=== PATIENT | female | born 1990 | race Caucasian/White ===

== ENCOUNTER 2017-08-31 20:17 | Emergency (ER) | payer OTHER ==
[2017-08-31 20:29] VITALS: BP 114/72
--- NOTE | 2017-08-31 20:51 | UC ---
Throat Pain/Nasal Abhinav HPI - HPI Summary HPI Summary: 27 yo female with sore throat, fever, chills x 1 day no n/v - History of Current Complaint Chief Complaint: UCGeneralIllness Stated Complaint: SORE THROAT, CHILLS Time Seen by Provider: 08/31/17 20:25 Hx Obtained From: Patient Hx Last Menstrual Period: 08/19/17 Onset/Duration: Gradual Onset, Lasting Hours Severity: Moderate Pain Intensity: 7 Pain Scale Used: 0-10 Numeric Cough: None - Allergies/Home Medications Allergies/Adverse Reactions: Allergies Allergy/AdvReac Type Severity Reaction Status Date / Time No Known Allergies Allergy Verified 08/31/17 20:30 PMH/Surg Hx/FS Hx/Imm Hx Previously Healthy: Yes - Surgical History Surgical History: None - Family History Known Family History: Positive: Hypertension, Diabetes - Social History Alcohol Use: None Substance Use Type: None Smoking Status (MU): Never Smoked Tobacco Review of Systems Constitutional: Fever, Chills Skin: Negative Eyes: Negative ENT: Sore Throat, Ear Ache Respiratory: Negative Cardiovascular: Negative Gastrointestinal: Negative Genitourinary: Negative Motor: Negative Neurovascular: Negative Musculoskeletal: Negative Neurological: Negative Psychological: Negative Is Patient Immunocompromised?: No All Other Systems Reviewed And Are Negative: Yes Physical Exam Triage Information Reviewed: Yes Appearance: Well-Appearing, No Pain Distress, Well-Nourished Vital Signs: Initial Vital Signs Temp 99.3 F 08/31/17 20:25 Pulse 95 08/31/17 20:25 Resp 16 08/31/17 20:25 BP 114/72 08/31/17 20:25 Pulse Ox 100 08/31/17 20:25 Eyes: Positive: Conjunctiva Clear ENT: Positive: Hearing grossly normal, Pharyngeal erythema, Tonsillar swelling, Tonsillar exudate. Negative: Nasal congestion, Nasal drainage, Trismus, Muffled voice, Hoarse voice, Sinus tenderness Neck: Positive: Supple, Nontender Respiratory: Positive: Lungs clear, Normal breath sounds, No respiratory distress Cardiovascular: Positive: RRR, No Murmur Musculoskeletal: Positive: ROM Limited @ - left elbow, Edema @ - left elbow, Other: - distal n/v intact Neurological: Positive: Alert Psychological Exam: Normal Skin Exam: Normal Diagnostics - Laboratory Diagnostic Studies Completed/Ordered: strep (-) Throat Pain/Nasal Course/Dx - Differential Dx/Diagnosis Provider Diagnoses: acute exudative tonsillitis Discharge - Sign-Out/Discharge Documenting (check all that apply): Discharge/Admit/Transfer - Discharge Plan Condition: Stable Disposition: HOME Prescriptions: Cephalexin CAP* [Keflex CAP*] 500 mg PO BID #18 cap Patient Education Materials: Tonsillitis (ED) Forms: *Work Release Referrals: KATHY Gaines [Primary Care Provider] - If Needed Additional Instructions: recheck in 4 days if not better - Billing Disposition and Condition Condition: STABLE Disposition: HOME
[2017-08-31] MEDS ORDERED: Cephalexin CAP* 500 MG PO ONE ×2 (20:53)
== END 2017-08-31 21:02 | disposition home or self-care (01) ==
LOC: UCCORT 20:17
DX: J03.90 Acute tonsillitis, unspecified (principal)
CPT/HCPCS: 87651; 99212; A9270-GY; G0463

== ENCOUNTER 2018-07-01 15:10 | Emergency (ER) | payer SELFPAY ==
[2018-07-01 15:42] VITALS: BP 117/77
--- NOTE | 2018-07-01 16:10 | UC ---
Ear Complaint HPI - HPI Summary HPI Summary: 28-year-old woman comes in with chief complaint of decreased hearing right ear an injury to her head and shoulder right shoulder. A couple of hours ago patient was moving items at her home and she had a 40 pound log up on a shelf came down and struck her in the right side of the head neck and shoulder. Immediately afterwards she's had decreased hearing in the right ear. The worst area of pain is in the right shoulder. No loss of consciousness or nausea and no vision changes. No weakness or numbness. The right shoulder hurts more when she moves it but she is able to move it with full range of motion and strength. The neck is not really giving her any pain right now and neither is the head. No drainage from the ear. - History of Current Complaint Chief Complaint: UCHeadInjury Stated Complaint: HEAD INJURY RIGHT EAR Time Seen by Provider: 07/01/18 16:02 Hx Last Menstrual Period: 'last week' Pain Intensity: 6 - Allergies/Home Medications Allergies/Adverse Reactions: Allergies Allergy/AdvReac Type Severity Reaction Status Date / Time No Known Allergies Allergy Verified 07/01/18 15:36 Home Medications: Home Medications Autoimmune Med 1 tab BID 07/01/18 [History Confirmed 07/01/18] PMH/Surg Hx/FS Hx/Imm Hx Previously Healthy: Yes - Surgical History Surgical History: None - Family History Known Family History: Positive: Hypertension, Diabetes - Social History Alcohol Use: None Substance Use Type: None Smoking Status (MU): Never Smoked Tobacco Review of Systems All Other Systems Reviewed And Are Negative: Yes Constitutional: Positive: Negative Skin: Positive: Negative Eyes: Positive: Negative ENT: Positive: Other - SEE HPI Respiratory: Positive: Negative Cardiovascular: Positive: Negative Gastrointestinal: Positive: Negative Motor: Positive: Negative Neurovascular: Positive: Negative Musculoskeletal: Positive: Other: - SEE HPI Neurological: Positive: Negative. Negative: Headache, Weakness, Numbness Psychological: Positive: Negative Is Patient Immunocompromised?: No Physical Exam Triage Information Reviewed: Yes Appearance: Well-Appearing, No Pain Distress, Well-Nourished Vital Signs: Initial Vital Signs Temp 97.9 F 07/01/18 15:37 Pulse 87 07/01/18 15:37 Resp 16 07/01/18 15:37 BP 117/77 07/01/18 15:37 Pulse Ox 100 07/01/18 15:37 Vital Signs Reviewed: Yes Eye Exam: Normal Eyes: Positive: Conjunctiva Clear ENT: Positive: Other - NL LEFT TM. RT TM IS RUPTURED IN THE POSTERIOR ASPECT. NO FLUID IN THE CANAL. Negative: Nasal congestion Ear Complaint Course/Dx - Course Course Of Treatment: Patient denies any headache weakness or numbness. No complaint of any neck pain. Patient does have shoulder pain but she has full range of motion and is not worried about any broken bones. Plan is for her to follow-up with ENT. Reevaluate sooner if worse or any questions or concerns. - Differential Dx/Diagnosis Provider Diagnosis: Eardrum rupture, right, Contusion of right shoulder, Head injury Discharge - Sign-Out/Discharge Documenting (check all that apply): Patient Departure All imaging exams completed and their final reports reviewed: No Studies - Discharge Plan Condition: Stable Disposition: HOME Patient Education Materials: Ruptured Eardrum (ED), Head Injury (ED), Shoulder Pain (ED) Referrals: KATHY Gaines [Primary Care Provider] - Beto Alcala MD [Medical Doctor] - Harsha Downs MD [Medical Doctor] - Additional Instructions: FOLLOW UP WITH ENT FOR YOUR RUPTURED RIGHT EAR DRUM. GET RECHECKED SOONER FOR ANY WORSENING OF YOUR CONDITION OR QUESTIONS OR CONCERNS. - Billing Disposition and Condition Condition: STABLE Disposition: Home
== END 2018-07-01 16:22 | disposition home or self-care (01) ==
LOC: UCCORT 15:10
DX: S09.21XA Traumatic rupture of right ear drum, initial encounter (principal); S40.011A Contusion of right shoulder, initial encounter; W20.8XXA Other cause of strike by thrown, projected or falling object, initial encounter; Y92.9 Unspecified place or not applicable
CPT/HCPCS: 99211; G0463

== ENCOUNTER 2018-11-03 19:17 | Emergency (ER) | payer BC, OTHER ==
[2018-11-03 19:44] VITALS: BP 107/81
--- NOTE | 2018-11-03 20:16 | UC ---
Back Pain HPI - HPI Summary HPI Summary: 28-year-old female comes in with a chief complaint of low back pain. Pain started yesterday when she is lifting turning at work. Pains in the low back. It radiates minimally into the right upper buttock but not down the legs. Pain is worse with any twisting turning bending. No weakness or numbness no difficulty controlling urine or bowels. - History of Current Complaint Chief Complaint: UCBackPain Stated Complaint: BACK INJURY Time Seen by Provider: 11/03/18 20:05 Hx Last Menstrual Period: 10/13/18 Pain Intensity: 10 - Allergies/Home Medications Allergies/Adverse Reactions: Allergies Allergy/AdvReac Type Severity Reaction Status Date / Time No Known Allergies Allergy Verified 11/03/18 19:40 PMH/Surg Hx/FS Hx/Imm Hx Previously Healthy: Yes - Surgical History Surgical History: None - Family History Known Family History: Positive: Hypertension, Diabetes - Social History Alcohol Use: None Substance Use Type: None Smoking Status (MU): Never Smoked Tobacco Review of Systems All Other Systems Reviewed And Are Negative: Yes Constitutional: Positive: Negative Skin: Positive: Negative Eyes: Positive: Negative ENT: Positive: Negative Respiratory: Positive: Negative Cardiovascular: Positive: Negative Gastrointestinal: Positive: Negative Motor: Positive: Negative Neurovascular: Positive: Negative Musculoskeletal: Positive: Other: - SEE HPI Neurological: Positive: Negative Psychological: Positive: Negative Is Patient Immunocompromised?: No Physical Exam Triage Information Reviewed: Yes Appearance: Well-Appearing, Well-Nourished, Pain Distress - MILD WITH ROM Vital Signs: Initial Vital Signs Temp 99 F 11/03/18 19:34 Pulse 97 11/03/18 19:34 Resp 16 11/03/18 19:34 BP 107/81 11/03/18 19:34 Pulse Ox 99 11/03/18 19:34 Vital Signs Reviewed: Yes Eye Exam: Normal Eyes: Positive: Conjunctiva Clear Neck: Positive: Supple Respiratory: Positive: No respiratory distress Musculoskeletal: Positive: Other: - Tender to palpation midline lower lumbar spine and slightly to the right of the lower lumbar spine. Legs a full range of motion full-strength no sensation deficits. Neurological: Positive: Alert Psychological Exam: Normal Psychological: Positive: Age Appropriate Behavior Skin Exam: Normal Back Pain Course/Dx - Differential Dx/Diagnosis Provider Diagnosis: Low back pain Discharge - Sign-Out/Discharge Documenting (check all that apply): Patient Departure All imaging exams completed and their final reports reviewed: No Studies - Discharge Plan Condition: Stable Disposition: HOME Prescriptions: Cyclobenzaprine TAB* [Flexeril 10 MG TAB*] 10 mg PO TID PRN #15 tab MDD 3 PRN Reason: Pain Patient Education Materials: Acute Low Back Pain (ED), Lower Back Exercises (ED ) Forms: *Work Release Referrals: Brad Muñiz MD [Medical Doctor] - Additional Instructions: FOLLOW UP WITH OCCUPATIONAL MEDICINE, DR MUÑIZ, IF NOT COMPLETELY IMPROVED. GET REEVALUATED SOONER IF WORSE; WEAKNESS, NUMBNESS, DIFFICULTY CONTROLLING BOWEL OR BLADDER, PAIN OR ANY QUESTIONS OR CONCERNS. - Billing Disposition and Condition Condition: STABLE Disposition: Home
== END 2018-11-03 20:25 | disposition home or self-care (01) ==
LOC: UCCORT 19:17
DX: M54.5 Low back pain (principal)
CPT/HCPCS: 99212; G0463

== ENCOUNTER 2019-06-05 12:11 | Emergency (ER) | payer OTHER ==
[2019-06-05 13:13] VITALS: BP 117/72
--- NOTE | 2019-06-19 12:50 | UC ---
Ear Complaint HPI - HPI Summary HPI Summary: 29 year old female with no PMH presents with clogged right ear, moderate ear pain x "few days". yesterday had low grade fever, concerned for ear infection. Taking Motrin for pain. no other symptoms. - History of Current Complaint Chief Complaint: UCEar Stated Complaint: RIGHT EAR COUGH SORE THROAT Time Seen by Provider: 06/05/19 14:11 Hx Obtained From: Patient Hx Last Menstrual Period: 05/11/19 ?: No Onset/Duration: Sudden Onset, Lasting Days Severity Initially: Moderate Severity Currently: Moderate Pain Intensity: 7 Pain Scale Used: 0-10 Numeric Alleviating Factors: OTC Meds - Allergies/Home Medications Allergies/Adverse Reactions: Allergies Allergy/AdvReac Type Severity Reaction Status Date / Time No Known Allergies Allergy Verified 06/05/19 13:09 Home Medications: Home Medications NK [No Home Medications Reported] 06/05/19 [History Confirmed 06/05/19] PMH/Surg Hx/FS Hx/Imm Hx Previously Healthy: Yes - Surgical History Surgical History: None - Family History Known Family History: Positive: Hypertension, Diabetes - Social History Alcohol Use: None Substance Use Type: None Smoking Status (MU): Never Smoked Tobacco Review of Systems All Other Systems Reviewed And Are Negative: Yes Constitutional: Positive: Fever ENT: Positive: Ear Ache. Negative: Sinus Congestion, Sinus Pain/Tenderness Respiratory: Positive: Negative Neurological/Mental Status: Positive: Headache Psychological: Positive: Negative Is Patient Immunocompromised?: No Physical Exam Triage Information Reviewed: Yes Appearance: Well-Appearing, No Pain Distress, Well-Nourished Vital Signs: Initial Vital Signs Temp 97.6 F 06/05/19 13:09 Pulse 78 06/05/19 13:09 Resp 16 06/05/19 13:09 BP 117/72 06/05/19 13:09 Pulse Ox 100 06/05/19 13:09 Vital Signs Reviewed: Yes Eyes: Positive: Conjunctiva Clear ENT: Positive: Pharynx normal, TMs normal - minimal fluid posterior to TM b/l, no sign of infection/ erythema/ drainage. Negative: Pharyngeal erythema, Tonsillar swelling, Tonsillar exudate, Sinus tenderness, Uvula midline Neck: Positive: Supple, Nontender, No Lymphadenopathy. Negative: Nuchal Rigidity, Enlarged Nodes @ Respiratory: Positive: Chest non-tender, Lungs clear, Normal breath sounds, No respiratory distress, No accessory muscle use. Negative: Respiratory distress, Decreased breath sounds, Crackles, Rhonchi, Stridor, Wheezing Cardiovascular: Positive: RRR, No Murmur Neurological: Positive: Alert Psychological: Positive: Normal Response To Family Skin Exam: Normal Skin: Negative: Rashes Ear Complaint Course/Dx - Course Course Of Treatment: URI, likely Viral - Increase fluid intake - No apparent bacterial infection noted, no antibiotics needed - Follow up if no improvement within 2-3 days or if symptoms worsen - Differential Dx/Diagnosis Differential Diagnosis/HQI/PQRI: URI Provider Diagnosis: Viral URI Discharge ED - Sign-Out/Discharge Documenting (check all that apply): Patient Departure All imaging exams completed and their final reports reviewed: Yes - Discharge Plan Condition: Good Disposition: HOME Patient Education Materials: Viral Syndrome (ED) Forms: *Work Release Referrals: No Primary Care Phys,NOPCP [Primary Care Provider] - Additional Instructions: - Increase fluid intake - No apparent bacterial infection noted, no antibiotics needed - FOllow up if no improvement within 2-3 days or if symptoms worsen - Billing Disposition and Condition Condition: GOOD Disposition: Home
== END 2019-06-05 14:32 | disposition home or self-care (01) ==
LOC: UCCORT 12:11
DX: J06.9 Acute upper respiratory infection, unspecified (principal); R51 Headache
CPT/HCPCS: 99211; G0463